=== PATIENT | male | born 1945 | race Caucasian/White ===

== ENCOUNTER 2019-09-29 08:50 | Emergency (ER) | payer MEDICARE, OTHER ==
[~2019-09-29] VITALS: Ht 182.8 cm; Wt 81.2 kg
[2019-09-29] MEDS ORDERED: methylPREDNISolone 125 MG (Solu-MEDROL) VIAL IM STA (09:14)
[2019-09-29] MEDS ORDERED: FAMOTIDINE 20 MG (PEPCID) TABLET PO ONE (09:15)
[2019-09-29] MEDS ORDERED: diphenhydrAMINE 50 MG/ML INJ (BENADRYL) IM ONE (09:15)
--- NOTE | 2019-09-29 09:41 | NUR ---
PATIENT CAME OUT OF ROOM WANTING TO LEAVE STATES HE DID NOT KNOW THEY WOULD BE HERE THIS LONG. BACK TO ROOM
--- NOTE | 2019-09-29 10:00 | ED General ---
General Chief Complaint: Allergic Reaction Stated Complaint: BEE STING - FACIAL SWELLING Nursing Triage Note: AMB TO ROOM REPORTS APX 530 TODAY WAS STUNG BY BEE LG AMOUNT OF SWELLING IN R EYE UNABLE TO OPEN EYE. Nursing Sepsis Screen: No Definite Risk Source of Information: Patient Exam Limitations: No Limitations History of Present Illness Date Seen by Provider: Sep 29, 2019 Time Seen by Provider: 09:08 Initial Comments Here with report of being stung by a bee at about 5:30 AM's morning to the right face below the right eye and near the nose. Has swelling that started there and has encompassed both eyes with right greater than left as well as the nose and upper brow bilateral. Denies breathing problems, stomach pain, nausea or weakness. Has had multiple bee stings in his life and has not had problems. Doesn't really follow with any physician. Hypertensive today and states that he may have that but is not really sure. Denies rash, hives or weakness. Drove himself to the ER. Timing/Duration: 4-6 Hours Severity: Moderate Associated Systoms: No Cough, No Fever/Chills, No Nausea/Vomiting, No Shortness of Air, No Weakness Allergies and Home Medications Allergies Coded Allergies: No Known Drug Allergies (Unverified , 09/29/19) Patient Home Medication List Home Medication List Reviewed: Yes Review of Systems Review of Systems Constitutional: see HPI; No chills, No fever EENTM: No mouth pain, No mouth swelling, No throat pain, No throat swelling Respiratory: No cough, No short of breath Cardiovascular: No chest pain, No palpitations Gastrointestinal: No abdominal pain, No nausea, No vomiting Genitourinary: no symptoms reported Musculoskeletal: No joint pain, No muscle pain Skin: no symptoms reported All Other Systems Reviewed Negative Unless Noted: Yes Past Xtxnnio-Dmupjg-Nwhqvp Hx Past Med/Social Hx: Reviewed Nursing Past Med/Soc Hx Patient Social History Alcohol Use: Denies Use Recreational Drug Use: No Smoking Status: Never a Smoker Recent Foreign Travel: No Contact w/Someone Who Travel: No Recent Infectious Disease Expo: No Past Medical History Surgeries: No Respiratory: No Cardiac: No Neurological: No Genitourinary: No Gastrointestinal: No Musculoskeletal: No Endocrine: No HEENT: No Cancer: No Psychosocial: No Integumentary: No Family Medical History Reviewed Nursing Family Hx Physical Exam Vital Signs Vital Signs - First Documented 09/29/19 08:54 Temp 36.9 Pulse 84 Resp 18 B/P (MAP) 191/11 (70) Capillary Refill : Less Than 3 Seconds Height, Weight, BMI Height: '" Weight: lbs. oz. kg; 24.00 BMI Method: General Appearance: No Apparent Distress, WD/WN HEENT: Pharynx Normal, Other (swelling to the case with swelling around the eye on the right greater than left and encompasses the brow as well. Right eye nearly swollen shut.) Neck: Non Tender, Supple Respiratory: Normal Breath Sounds, Expiration, Wheezing (a few trace wheezes especially at the base) Cardiovascular: Regular Rate, Rhythm, No Murmur Gastrointestinal: Non Tender, Soft Back: Normal Inspection, No CVA Tenderness, No Vertebral Tenderness Extremity: Normal Range of Motion, Non Tender Neurologic/Psychiatric: Alert, Oriented x3 Skin: Normal Color, Warm/Dry Progress/Results/Core Measures Suspected Sepsis Recent Fever Within 48 Hours: No Infection Criteria Present: None New/Unexplained Altered Menta: No Sepsis Screen: No Definite Risk SIRS Temperature: Pulse: 84 Respiratory Rate: 18 Blood Pressure 191 /11 Mean: 70 Results/Orders My Orders Orders - DELVIN SHRESTHA MD Diphenhydramine Injection (Benadryl Inje (09/29/19 09:15) Methylprednisolone Sod Succ (Solu-Medrol (09/29/19 09:14) Famotidine Tablet (Pepcid Tablet) (09/29/19 09:15) Medications Given in ED Current Medications Medications Dose Ordered Sig/Elsy Route Start Time Stop Time Status Last Admin Dose Admin Diphenhydramine HCl 50 mg ONCE ONCE IM 09/29/19 09:15 09/29/19 09:17 DC 09/29/19 09:25 50 MG Famotidine 20 mg ONCE ONCE PO 09/29/19 09:15 09/29/19 09:17 DC 09/29/19 09:24 20 MG Vital Signs/I&O 09/29/19 08:54 Temp 36.9 Pulse 84 Resp 18 B/P (MAP) 191/11 (70) Capillary Refill : Less Than 3 Seconds Blood Pressure Mean: 70 Progress Note : Progress Note Seen and evaluated. Solu-Medrol 125 mg IM, Benadryl 50 mg IM and Pepcid 20 mg by mouth ordered. Monitor patient. 1037: Overall doing better with much greater opening of the right eye. Patient like to go. Discharged home with return precautions. Patient verbalize understanding instructions and agreement with plan. Instructed to follow-up with primary care regarding his blood pressure. Patient states he would. I did encourage him to do so and twisted my concerns related to uncontrolled hypertension. Patient stated he understood. Departure Impression Primary Impression: Bee sting reaction Qualified Codes: T63.444A - Toxic effect of venom of bees, undetermined, initial encounter Disposition: HOME, SELF-CARE Condition: Stable Departure-Patient Inst. Decision time for Depature: 10:39 Referrals: NO,LOCAL PHYSICIAN (PCP/Family) Primary Care Physician Patient Instructions: Insect Bites and Stings (DC) Add. Discharge Instructions: All discharge instructions reviewed with patient and/or family. Voiced understanding. You may take Benadryl 25 mg every 6 hours as needed for itching or swelling. You may take ldru-dop-cfmjbvt Pepcid or the generic famotidine 20 mg daily for the next few days as needed for swelling as well. Take medications as directed. Take Your prescription and take it as prescribed. Return for worse pain, swelling, breathing problems, nausea, vomiting, abdominal pain or other concerns as need ed. Scripts Prednisone (Prednisone) 20 Mg Tab 40 MG PO DAILY, #6 TAB 0 Refills Prov: DELVIN SHRESTHA MD 09/29/19 DELVIN SHRESTHA MD Sep 29, 2019 10:00
--- NOTE | 2019-09-29 10:36 | NUR ---
TO ROOM SWELLING IMPROVED ABLE TO OPEN R EYE.
[2019-09-29] MEDS ORDERED: PRD20T PO (10:40)
[2019-09-29 10:42] VITALS: BP 186/109
== END 2019-09-29 10:47 | disposition home or self-care (01) ==
LOC: ER 08:52
DX: T63.444A Toxic effect of venom of bees, undetermined, initial encounter (principal)
CPT/HCPCS: 99284

== ENCOUNTER → 2019-10-04 | Outpatient (CLI) | payer SELFPAY ==
[~2019-10-04] MED LIST: PRD20T PO
--- NOTE | 2019-10-04 11:12 | Diagnostic Imaging Report ---
INDICATION: Cough and wheezing. TIME OF EXAM: 10:19 AM No prior studies available for comparison. Lungs are hyperinflated consistent with COPD. There is some scarring or atelectasis in left base. No infiltrates are seen. No significant effusion. No pneumothorax. IMPRESSION: COPD with left basilar atelectasis or scarring. Dictated by: Dictated on workstation # [id number]
== END ==
LOC: RAD 09:46
PROVIDERS: ATTEND Family Medicine
DX: J44.9 Chronic obstructive pulmonary disease, unspecified (principal)
CPT/HCPCS: 71046

== ENCOUNTER 2020-12-10 09:15 | Emergency (ER) | payer MEDICARE, MEDICAID ==
[~2020-12-10] VITALS: Ht 182 cm; Wt 81.6 kg
[2020-12-10] MEDS ORDERED: RT-ALBUTEROL/IPRATROPIUM 3 ML (DUONEB) VIAL INH ONE (10:45)
--- NOTE | 2020-12-10 11:09 | Diagnostic Imaging Report ---
INDICATION: Cough, COPD, Neg COVID COMPARISON: 10/04/2019 FINDINGS: Frontal and lateral views of the chest demonstrate normal heart size and pulmonary vascularity. The lungs are clear. There are no signs of infiltrate, pleural effusions or pneumothoraces. The visualized osseous structures show no acute abnormalities. IMPRESSION: 1. No acute process. No signs of infiltrates, effusions or pneumothoraces. Dictated by: Dictated on workstation # [id number]
[2020-12-10] MEDS ORDERED: RT-ALBUINH INH (11:36)
--- NOTE | 2020-12-10 11:36 | ED General ---
General Chief Complaint: Cough/Cold/Flu Symptoms Stated Complaint: SOB,COUGH Nursing Triage Note: pt presents to ed with complaints of cough starting yesterday. Allergies and Home Medications Allergies Coded Allergies: No Known Drug Allergies (Unverified , 09/29/19) Home Medications Prednisone 20 Mg Tab, 40 MG PO DAILY Prescribed by: DELVIN SHRESTHA on 09/29/19 1040 Past Nufxkoj-Owpwic-Kfnamv Hx Patient Social History Tobacco Use?: No Smoking Status: Former Smoker Substance use?: No Alcohol Use?: No Pt feels they are or have been: No Past Medical History Surgeries: No Respiratory: No Cardiac: No Neurological: No Genitourinary: No Gastrointestinal: No Musculoskeletal: No Endocrine: No HEENT: No Cancer: No Psychosocial: No Integumentary: No Physical Exam Vital Signs Vital Signs - First Documented 12/10/20 09:49 Temp 36.8 Pulse 90 Resp 24 B/P (MAP) 154/79 (104) Pulse Ox 90 Capillary Refill : Less Than 3 Seconds Height, Weight, BMI Height: '" Weight: lbs. oz. kg; 24.00 BMI Method: Progress/Results/Core Measures Suspected Sepsis SIRS Temperature: Pulse: 90 Respiratory Rate: 24 Blood Pressure 154 /79 Mean: 104 Results/Orders Lab Results Laboratory Tests Test 12/10/20 09:55 Range/Units Influenza Type A (RT-PCR) Not Detected Not Detecte Influenza Type B (RT-PCR) Not Detected Not Detecte SARS-CoV-2 RNA (RT-PCR) Not Detected Not Detecte My Orders Orders - TEJAL PILLAI MD Covid 19 Inhouse Test (12/10/20 09:53) Influenza A And B By Pcr (12/10/20 09:53) Albuterol/Ipra Inhalation Soln (Duoneb I (12/10/20 10:45) Svn Small Volume Nebulizer (12/10/20 10:38) Chest Pa/Lat (2 View) (12/10/20 10:38) Vital Signs/I&O 12/10/20 09:49 Temp 36.8 Pulse 90 Resp 24 B/P (MAP) 154/79 (104) Pulse Ox 90 Capillary Refill : Less Than 3 Seconds Blood Pressure Mean: 104 Departure Impression Primary Impression: COPD with exacerbation Disposition: 01 HOME, SELF-CARE Condition: Stable Departure-Patient Inst. Decision time for Depature: 11:33 Referrals: ANISHA LITTLE MD (PCP/Family) Primary Care Physician Patient Instructions: Chronic Obstructive Pulmonary Disease (COPD) (DC) Add. Discharge Instructions: Use your scheduled inhaled medications as previously directed. Add the albuterol inhaler up to 4 puffs in a 4-hour period of time as needed for shortness of breath, wheezing, or uncontrolled coughing. If this is not improving your symptoms over the next 24 hours, call your doctor in the morning for further instructions. Also schedule an appointment for follow-up with your doctor as soon as possible to review treatment of your COPD. Call the ER with any questions or concerns. Return to the ER if you have worsening of symptoms. All discharge instructions reviewed with patient and/or family. Voiced un derstanding. Scripts Albuterol Sulfate (VENTOLIN HFA) 1 Puff Puff 1-4 PUFF INH Q4H PRN for SHORTNESS OF BREATH, #1 EA 1 PUFF = 90 MCG Prov: TEJAL PILLAI MD 12/10/20 Copy Copies To 1: ANISHA LITTLE MD, JOSHUA T MD Dec 10, 2020 11:36
[2020-12-10 11:44] VITALS: BP 148/97
== END 2020-12-10 11:48 | disposition home or self-care (01) ==
LOC: EDUNIT# 09:15 → ER 09:18
DX: J44.1 Chronic obstructive pulmonary disease with (acute) exacerbation (principal); Z20.822 Contact with and (suspected) exposure to COVID-19; Z87.891 Personal history of nicotine dependence; Z79.52 Long term (current) use of systemic steroids
CPT/HCPCS: 71046; 87636

== ENCOUNTER → 2021-07-28 | Outpatient (CLI) | payer MEDICARE, MEDICAID ==
[~2021-07-28] MED LIST changes: +RT-ALBUINH INH
--- NOTE | 2021-07-28 16:10 | Diagnostic Imaging Report ---
INDICATION: COPD. TIME OF EXAM: 3:39 PM. COMPARISON: Correlation is made with prior chest 12/10/2020. FINDINGS: Lungs are hyperinflated consistent with COPD. The heart size is normal. Lungs are clear. No infiltrates are detected. There is no effusion or pneumothorax. IMPRESSION: COPD. No acute feature is detected. Dictated by: Dictated on workstation # [id number]
== END ==
LOC: RAD 15:25
PROVIDERS: ATTEND Nurse Practitioner Family
DX: J44.9 Chronic obstructive pulmonary disease, unspecified (principal)
CPT/HCPCS: 71046

== ENCOUNTER 2021-12-08 15:40 | Emergency (ER) | payer MEDICARE, MEDICAID ==
[~2021-12-08] VITALS: Ht 182.8 cm; Wt 81.6 kg
--- NOTE | 2021-12-08 15:53 | ED General ---
General Chief Complaint: Bite-Animal/Human/Insect Stated Complaint: BEE STING, SWELLING Source of Information: Patient Exam Limitations: No Limitations History of Present Illness Date Seen by Provider: Dec 08, 2021 Time Seen by Provider: 15:43 Initial Comments 76-year-old male with past medical history most notable for hypertension coming in after he was stung just under his chin by a bee over an hour prior to arrival. 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 Denies feeling short of breath, has no difficulty swallowing, no wheezing, nausea, vomiting, rash anywhere, or any other concerns. Tetanus is up-to-date. Allergies and Home Medications Allergies Coded Allergies: No Known Drug Allergies (Unverified , 09/29/19) Patient Home Medication List Home Medication List Reviewed: Yes Albuterol Sulfate (Ventolin Hfa) 1 Puff Puff, 1-4 PUFF INH Q4H PRN for SHORTNESS OF BREATH Prescribed by: TEJAL KRUSE on 12/10/20 1136 Prednisone (Prednisone) 20 Mg Tab, 40 MG PO DAILY Prescribed by: DELVIN SHRESTHA on 09/29/19 1040 Review of Systems Review of Systems Constitutional: No fever EENTM: no symptoms reported Respiratory: no symptoms reported Cardiovascular: no symptoms reported Gastrointestinal: no symptoms reported Genitourinary: no symptoms reported Musculoskeletal: no symptoms reported Skin: see HPI Psychiatric/Neurological: No Symptoms Reported Hematologic/Lymphatic: No Symptoms Reported Immunological/Allergic: no symptoms reported All Other Systems Reviewed Negative Unless Noted: Yes Past Zzvjsph-Aosilg-Ssnntz Hx Patient Social History Tobacco Use?: No Past Medical History Surgeries: No Respiratory: Yes COPD Cardiac: Yes Hypertension Neurological: No Genitourinary: No Gastrointestinal: No Musculoskeletal: No Endocrine: No HEENT: No Cancer: No Psychosocial: No Integumentary: No Physical Exam Vital Signs Vital Signs - First Documented 12/08/21 15:42 Temp 36.9 Pulse 61 Resp 20 B/P (MAP) 168/115 (132) Pulse Ox 96 O2 Delivery Room Air Capillary Refill : Height, Weight, BMI Height: '" Weight: lbs. oz. kg; 24.00 BMI Method: General Appearance: No Apparent Distress, WD/WN HEENT: PERRL/EOMI, Normal ENT Inspection, Pharynx Normal Neck: Full Range of Motion, Normal Inspection, Non Tender, Supple Respiratory: Chest Non Tender, Lungs Clear, Normal Breath Sounds, No Accessory Muscle Use, No Respiratory Distress Cardiovascular: Regular Rate, Rhythm, No Edema, Normal Peripheral Pulses Gastrointestinal: Normal Bowel Sounds, Non Tender, Soft; No Guarding Back: Normal Inspection Extremity: Normal Capillary Refill, Normal Inspection, Normal Range of Motion, Non Tender, No Calf Tenderness, No Pedal Edema Neurologic/Psychiatric: Alert, No Motor/Sensory Deficits, Normal Mood/Affect Skin: Normal Color, Warm/Dry, Other (May be some subtle redness under his chin with no swelling noted) Lymphatic: No Adenopathy Progress/Results/Core Measures Suspected Sepsis SIRS Temperature: Pulse: Respiratory Rate: Blood Pressure / Mean: Results/Orders My Orders Orders - YANN TIJERINA MD Diphenhydramine Injection (Benadryl Inje (12/08/21 16:00) Dexamethasone Injection (Decadron Injec (12/08/21 16:00) Famotidine Tablet (Pepcid Tablet) (12/08/21 16:00) Medications Given in ED Current Medications Medications Dose Ordered Sig/Elsy Route Start Time Stop Time Status Last Admin Dose Admin Dexamethasone Sodium Phosphate 8 mg ONCE ONCE IV 12/08/21 16:00 12/08/21 16:01 DC 12/08/21 15:57 8 MG Diphenhydramine HCl 25 mg ONCE ONCE IVP 12/08/21 16:00 12/08/21 16:01 DC 12/08/21 15:57 25 MG Famotidine 40 mg ONCE ONCE PO 12/08/21 16:00 12/08/21 16:01 DC 12/08/21 15:55 40 MG Vital Signs/I&O 12/08/21 15:42 Temp 36.9 Pulse 61 Resp 20 B/P (MAP) 168/115 (132) Pulse Ox 96 O2 Delivery Room Air Capillary Refill : Progress Note : Progress Note 76-year-old male with above history coming in after possible bee sting. He never did seem to be, but knows he has a swarm of bees where he was near and felt a sting under his chin. This was over an hour prior to arrival and he has no signs of anaphylaxis. He says he feels some subjective swelling, I do not feel or see any. Given his history of allergies with this, we will go ahead and start an IV and give him Benadryl, steroids, and Pepcid to hopefully forego any type of allergic response. We then monitored the patient for a while and continue to reassess him, and he had no signs of anaphylaxis. I believe he stable for discharge with outpatient follow-up. He was sent home with strict return precautions. Departure Impression Primary Impression: Bee sting Qualified Codes: T63.441A - Toxic effect of venom of bees, accidental (unintentional), initial encounter Disposition: HOME, SELF-CARE Condition: Stable Departure-Patient Inst. Decision time for Depature: 16:35 Referrals: NO,LOCAL PHYSICIAN (PCP) Primary Care Physician ANAHI MADRID (Family) Primary Care Physician Patient Instructions: Insect Bites and Stings (DC) Add. Discharge Instructions: You can take some soxz-cua-srsqxnv Zyrtec for the next couple of days if you have any itching. If you begin feeling very short of breath, feel like your throat is closing, wheezing a lot, or have any other concerns then please come back to the ER. We did give you a long-acting steroid which should help and last several days. YANN TIJERINA MD Dec 08, 2021 15:53
[2021-12-08] MEDS ORDERED: diphenhydrAMINE 50 MG/ML INJ (BENADRYL) IVP ONE (16:00)
[2021-12-08] MEDS ORDERED: FAMOTIDINE 20 MG (PEPCID) TABLET PO ONE (16:00)
[2021-12-08 16:48] VITALS: BP 168/115
== END 2021-12-08 16:48 | disposition home or self-care (01) ==
LOC: EDUNIT# 15:40 → ER 15:42
DX: T63.441A Toxic effect of venom of bees, accidental (unintentional), initial encounter (principal)
CPT/HCPCS: 96374; 96375; 99282

== ENCOUNTER 2022-09-15 14:55 | Emergency (ER) | payer MEDICAID, MEDICARE ==
[~2022-09-15] VITALS: Ht 177 cm; Wt 80.0 kg
[2022-09-15] MEDS ORDERED: fentaNYL INJ 100 MCG/2 ML AMP ONE (15:10)
[2022-09-15] MEDS ORDERED: fentaNYL INJ 100 MCG/2 ML AMP IVP ONE (15:15)
[2022-09-15] MEDS ORDERED: HOLD METFORMIN - RECEIVED CONTRAST 20 ML VIAL IV SCH (15:15)
[2022-09-15] MEDS ORDERED: IOHEXOL 350 MG/ML 100 ML (OMNIPAQUE 350) VIAL IV ONE (15:15)
[2022-09-15] MEDS ORDERED: NS 100 ML (IVPB) BAG IV ONE (15:15)
[2022-09-15 15:18] LABS: HEMATOCRIT 44 % (40-54); HEMOGLOBIN 15.2 g/dL (13.3-17.7); MEAN CORPUSCULAR HEMOGLOBIN 30 pg (25-34); MEAN CORPUSCULAR HGB CONC 35 g/dL (32-36); MEAN CORPUSCULAR VOLUME 87 fL (80-99); MEAN PLATELET VOLUME 11.3 fL (9.0-12.2); PLATELET COUNT 266 10^3/uL (130-400)
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
[2022-09-15] MEDS ORDERED: morphine INJ 10 MG/ML 1ML (SYR OR VIAL) IVP STA (15:27)
[2022-09-15] MEDS ORDERED: LORazepam INJ 2 MG/ML (ATIVAN) VIAL IVP ONE (15:30)
[2022-09-15 15:32] LABS: ALBUMIN 4.2 GM/DL (3.2-4.5); CHLORIDE 103 MMOL/L (98-107); SODIUM 137 MMOL/L (135-145)
[2022-09-15 15:33] LABS: CALCIUM 9.5 MG/DL (8.5-10.1)
[2022-09-15 15:35] LABS: GLUCOSE 173 MG/DL (70-105); TOTAL PROTEIN 7.5 GM/DL (6.4-8.2)
[2022-09-15 15:36] LABS: BILIRUBIN,TOTAL 0.6 MG/DL (0.1-1.0); CARBON DIOXIDE 22 MMOL/L (21-32)
[2022-09-15 15:38] LABS: ALKALINE PHOSPHATASE 39 U/L (40-136); CREATININE SERUM 1.36 MG/DL (0.60-1.30); GFR ESTIMATED 54
[2022-09-15 15:39] LABS: BUN/CREATININE RATIO 21
[2022-09-15 15:40] LABS: BILIRUBIN,DIRECT 0.2 MG/DL (0.0-0.3); BILIRUBIN,INDIRECT 0.4 MG/DL
[2022-09-15 15:41] LABS: ALANINE AMINOTRANSFERASE 38 U/L (0-55)
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
[2022-09-15] MEDS ORDERED: ceFAZolin INJECTION 2,000 MG in NS (IVPB) 50 ML IV ONE (16:00)
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
[2022-09-15 16:10] LABS: BILIRUBIN,URINE NEGATIVE (NEGATIVE); CLARITY,URINE CLEAR; COLOR,URINE YELLOW; GLUCOSE, URINE (UA) NEGATIVE (NEGATIVE); KETONES,URINE TRACE (NEGATIVE); LEUKOCYTE ESTERASE ,URINE NEGATIVE (NEGATIVE); NITRITE,URINE NEGATIVE (NEGATIVE); PH,URINE 5.5 (5-9); PROTEIN,URINE 1+ (NEGATIVE)
--- NOTE | 2022-09-15 16:16 | Diagnostic Imaging Report ---
INDICATION: Right-sided chest pain Portable chest 4:13 PM There is right thoracostomy tube. There is some infiltrate present in the right upper lobe. Left lung is clear. There is no mediastinal widening. There is no effusion or pneumothorax. IMPRESSION: Right upper lobe infiltrate. Interval placement of a right thoracostomy tube. Dictated by: Dictated on workstation # [id number]
[2022-09-15 16:23] VITALS: BP 165/99
[2022-09-15 16:23] LABS: BACTERIA,URINE TRACE /HPF; SQUAMOUS EPITHELIAL CELL,UR RARE /HPF
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
--- NOTE | 2022-09-15 23:45 | Progress Note-Post Operative ---
Post-Operative Progess Note Surgeon (s)/Preschool Paraprofessional (s) Surgeon HEMALATHA JEFFERSON DO Preschool Paraprofessional: none Pre-Operative Diagnosis right pneumothorax Post-Operative Diagnosis same Procedure & Operative Findings Date of Procedure 09/15/22 Procedure Performed/Findings Right sided Chest tube placement Anesthesia Type local lidocaine Estimated Blood Loss Estimated blood loss (mL): none Specimens/Packing Specimens Removed none Packin HEMALATHA JEFFERSON DO Sep 15, 2022 23:45
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
== END 2022-09-15 16:23 | disposition short-term general hospital (02) ==
LOC: EDUNIT# 14:55 → ER 14:56
DX: S02.19XA Other fracture of base of skull, initial encounter for closed fracture (principal); S06.6X0A Traumatic subarachnoid hemorrhage without loss of consciousness, initial encounter; S06.5X0A Traumatic subdural hemorrhage without loss of consciousness, initial encounter; S22.41XA Multiple fractures of ribs, right side, initial encounter for closed fracture; S42.001A Fracture of unspecified part of right clavicle, initial encounter for closed fracture; S27.321A Contusion of lung, unilateral, initial encounter; S27.0XXA Traumatic pneumothorax, initial encounter; I48.91 Unspecified atrial fibrillation; E87.6 Hypokalemia; R41.82 Altered mental status, unspecified; S40.211A Abrasion of right shoulder, initial encounter; S20.91XA Abrasion of unspecified parts of thorax, initial encounter; S80.211A Abrasion, right knee, initial encounter; S70.211A Abrasion, right hip, initial encounter; S50.311A Abrasion of right elbow, initial encounter; S60.811A Abrasion of right wrist, initial encounter; V23.49XA Other motorcycle driver injured in collision with car, pick-up truck or van in traffic accident, initial encounter; Y92.410 Unspecified street and highway as the place of occurrence of the external cause
CPT/HCPCS: 36415; 51702; 70450; 70498; 71045; 71260; 72170; 74177; 80048; 80076; 80320; 81000; 84484; 85027; 86850; 86900; 86901; 93041; 99291

== ENCOUNTER 2022-10-09 18:00 | Emergency (ER) | payer MEDICAID, MEDICARE ==
[~2022-10-09] VITALS: Ht 182 cm; Wt 80.0 kg
[2022-10-09] MEDS ORDERED: morphine INJ 10 MG/ML 1ML (SYR OR VIAL) IVP STA (18:17)
[2022-10-09 18:21] LABS: BASOPHILS # (AUTO) 0.1 10^3/uL (0.0-0.1); BASOPHILS % (AUTO) 0 % (0-10); EOSINOPHILS # (AUTO) 0.2 10^3/uL (0.0-0.3); EOSINOPHILS % (AUTO) 1 % (0-10); HEMATOCRIT 28 % (40-54); HEMOGLOBIN 9.2 g/dL (13.3-17.7); LYMPHOCYTES # (AUTO) 1.7 10^3/uL (1.0-4.0); LYMPHOCYTES % (AUTO) 14 % (12-44); MEAN CORPUSCULAR HEMOGLOBIN 31 pg (25-34); MEAN CORPUSCULAR HGB CONC 33 g/dL (32-36); MEAN CORPUSCULAR VOLUME 93 fL (80-99); MEAN PLATELET VOLUME 9.2 fL (9.0-12.2); MONOCYTES % (AUTO) 8 % (0-12); NEUTROPHILS # (AUTO) 9.6 10^3/uL (1.8-7.8); NEUTROPHILS % (AUTO) 76 % (42-75); PLATELET COUNT 380 10^3/uL (130-400); WHITE BLOOD COUNT 12.7 10^3/uL (4.3-11.0)
[2022-10-09 18:33] LABS: ALBUMIN 3.4 GM/DL (3.2-4.5); CHLORIDE 103 MMOL/L (98-107); POTASSIUM 3.9 MMOL/L (3.6-5.0); SODIUM 136 MMOL/L (135-145)
[2022-10-09 18:34] LABS: CALCIUM 8.7 MG/DL (8.5-10.1)
[2022-10-09 18:35] LABS: GLUCOSE 131 MG/DL (70-105); PROTHROMBIN TIME PATIENT 13.3 SEC (12.2-14.7)
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
[2022-10-09 18:36] LABS: TOTAL PROTEIN 6.3 GM/DL (6.4-8.2)
[2022-10-09 18:37] LABS: BILIRUBIN,TOTAL 0.6 MG/DL (0.1-1.0); CARBON DIOXIDE 25 MMOL/L (21-32)
[2022-10-09 18:39] LABS: ALKALINE PHOSPHATASE 88 U/L (40-136); CREATININE SERUM 0.97 MG/DL (0.60-1.30); GFR ESTIMATED 81
[2022-10-09 18:40] LABS: BUN/CREATININE RATIO 15
[2022-10-09 18:42] LABS: ALANINE AMINOTRANSFERASE 46 U/L (0-55)
--- NOTE | 2022-10-09 18:43 | Diagnostic Imaging Report ---
INDICATION: Chest pain. COMPARISON: Prior examination from 09/15/2022. FINDINGS: The heart size, mediastinal configuration and pulmonary vascularity are within normal limits. There is no pleural effusion, pneumothorax or pneumonia. The osseous structures are unremarkable. IMPRESSION: No acute cardiopulmonary abnormality. Dictated by: Dictated on workstation # [id number]
[2022-10-09] MEDS ORDERED: IOHEXOL 350 MG/ML 100 ML (OMNIPAQUE 350) VIAL IV ONE (18:45)
[2022-10-09] MEDS ORDERED: HOLD METFORMIN - RECEIVED CONTRAST 20 ML VIAL IV SCH (18:45)
[2022-10-09] MEDS ORDERED: NS 100 ML (IVPB) BAG IV ONE (18:45)
--- NOTE | 2022-10-09 19:16 | Diagnostic Imaging Report ---
PROCEDURE: CT angiography of the chest with contrast and CT abdomen and pelvis with contrast. TECHNIQUE: Multiple contiguous axial images were obtained through the chest, abdomen and pelvis after administration of intravenous contrast. 3D MIP reconstructed CT angiography acquisitions of the aorta were then performed. Auto Exposure Controls were utilized during the CT exam to meet ALARA standards for radiation dose reduction. INDICATION: Chest pain. FINDINGS: There is 1.5 cm spiculated mass in the medial aspect of the superior segment of the right lower lobe. There is some left basilar atelectasis and/or pneumonitis. There is no pleural or pericardial fluid. There is no pneumothorax. The thoracic aorta is normal in caliber without evidence of dissection. There is no filling defect seen within the pulmonary arteries to suggest pulmonary embolism. The liver is normal in size and without focal lesion. Gallbladder is unremarkable. There is no biliary ductal dilatation. Spleen is normal. There are findings compatible with chronic calcific pancreatitis. The adrenal glands are unremarkable. There is a cyst in the right kidney. There is a 5 cm infrarenal abdominal aortic aneurysm with some caridad-luminal thrombosis. The bowel gas pattern is nonspecific. There is some diverticular disease. There is no diverticulitis. Bladder is normal. There is no pelvic mass or adenopathy. There is enlargement of the prostate. There are degenerative changes in the spine. IMPRESSION: 1. 1.5 cm spiculated mass in the medial aspect of the right upper lobe concerning for neoplasm. Additionally, there is some left basilar atelectasis and/or pneumonitis. 2. Findings compatible with chronic calcific pancreatitis. 3. Right renal cyst. 4. 5 cm infrarenal abdominal aortic aneurysm. 5. Diverticular disease without evidence for diverticulitis. Dictated by: Dictated on workstation # [id number]
[2022-10-09] MEDS ORDERED: TRM50T PO (20:27)
[2022-10-09 20:40] VITALS: BP 164/81
== END 2022-10-09 20:40 | disposition home or self-care (01) ==
LOC: EDUNIT# 18:00 → ER 18:02
DX: I71.40 Abdominal aortic aneurysm, without rupture, unspecified (principal); K92.2 Gastrointestinal hemorrhage, unspecified; R91.8 Other nonspecific abnormal finding of lung field; D64.9 Anemia, unspecified; N28.1 Cyst of kidney, acquired; K86.1 Other chronic pancreatitis; D72.829 Elevated white blood cell count, unspecified; Z86.79 Personal history of other diseases of the circulatory system
CPT/HCPCS: 36415; 71045; 71275; 74174; 80053; 82274; 83690; 83735; 84484; 85025; 85610; 85730; 93005; 93041

== ENCOUNTER 2022-11-25 18:24 | Emergency (ER) | payer MEDICARE, MEDICAID ==
[~2022-11-25] VITALS: Ht 182 cm; Wt 70.0 kg
[~2022-11-25 18:24] MED LIST changes: +TRM50T PO
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
[2022-11-25 19:15] LABS: ALBUMIN 3.8 GM/DL (3.2-4.5); BILIRUBIN,TOTAL 0.9 MG/DL (0.1-1.0); CREATININE SERUM 1.34 MG/DL (0.60-1.30); POTASSIUM 3.7 MMOL/L (3.6-5.0)
[2022-11-25] MEDS ORDERED: ONDANSETRON 4 MG/2 ML (SDV) Z0FRAN IVP ONE (19:15)
[2022-11-25] MEDS ORDERED: fentaNYL INJECTION 100 MCG/2 ML VIAL IVP ONE (19:15)
[2022-11-25] MEDS ORDERED: PANTOPRAZOLE 40 MG (PROTONIX) VIAL IV ONE (19:15)
[2022-11-25 19:16] LABS: BASOPHILS % (AUTO) 0 % (0-10); EOSINOPHILS # (AUTO) 0.2 10^3/uL (0.0-0.3); EOSINOPHILS % (AUTO) 2 % (0-10); HEMATOCRIT 39 % (40-54); HEMOGLOBIN 13.4 g/dL (13.3-17.7); LYMPHOCYTES # (AUTO) 1.7 10^3/uL (1.0-4.0); LYMPHOCYTES % (AUTO) 16 % (12-44); MEAN CORPUSCULAR HEMOGLOBIN 30 pg (25-34); MEAN CORPUSCULAR HGB CONC 34 g/dL (32-36); MEAN CORPUSCULAR VOLUME 89 fL (80-99); MEAN PLATELET VOLUME 10.4 fL (9.0-12.2); MONOCYTES # (AUTO) 0.9 10^3/uL (0.0-1.0); MONOCYTES % (AUTO) 9 % (0-12); NEUTROPHILS # (AUTO) 7.6 10^3/uL (1.8-7.8); NEUTROPHILS % (AUTO) 72 % (42-75); PLATELET COUNT 229 10^3/uL (130-400); WHITE BLOOD COUNT 10.5 10^3/uL (4.3-11.0)
[2022-11-25 19:19] LABS: CLARITY,URINE CLEAR; COLOR,URINE YELLOW; GLUCOSE, URINE (UA) NEGATIVE (NEGATIVE); PROTEIN,URINE NEGATIVE (NEGATIVE)
[2022-11-25 19:20] LABS: BILIRUBIN,URINE NEGATIVE (NEGATIVE); KETONES,URINE NEGATIVE (NEGATIVE); NITRITE,URINE NEGATIVE (NEGATIVE)
[2022-11-25] MEDS ORDERED: IOHEXOL 350 MG/ML 100 ML (OMNIPAQUE 350) VIAL IV ONE (19:30)
[2022-11-25] MEDS ORDERED: NS IV 1000 ML 1,000 ML IV SCH (19:30)
[2022-11-25] MEDS ORDERED: NS 100 ML (IVPB) BAG IV ONE (19:30)
[2022-11-25] MEDS ORDERED: HOLD METFORMIN - RECEIVED CONTRAST 20 ML VIAL IV SCH (19:30)
[2022-11-25 19:39] LABS: PROTHROMBIN TIME PATIENT 13.2 SEC (12.2-14.7)
[2022-11-25] MEDS ORDERED: GUAI120013 (19:39)
[2022-11-25] MEDS ORDERED: HYDR25TA4 (19:39)
[2022-11-25] MEDS ORDERED: CHLO50TA2 (19:39)
[2022-11-25] MEDS ORDERED: FLUT1BLS15 (19:39)
[2022-11-25] MEDS ORDERED: DIGO250T3 (19:39)
[2022-11-25] MEDS ORDERED: AMIO200T65 (19:39)
[2022-11-25] MEDS ORDERED: PANT40TA52 (19:39)
[2022-11-25] MEDS ORDERED: METO-333 (19:39)
[2022-11-25 19:40] LABS: LEUKOCYTE ESTERASE ,URINE NEGATIVE (NEGATIVE)
[2022-11-25 19:42] LABS: BACTERIA,URINE NEGATIVE /HPF; RBC,URINE 0-2 /HPF; SQUAMOUS EPITHELIAL CELL,UR RARE /HPF
--- NOTE | 2022-11-25 19:44 | Diagnostic Imaging Report ---
EXAM: Chest 1 view, AP/PA only. INDICATION: Dyspnea. Epigastric pain. COMPARISON: 10/09/2022. FINDINGS: Normal heart size and central pulmonary vascularity. Lungs are clear. No pleural effusion or pneumothorax. No acute osseous finding. Subacute to chronic right clavicle fracture. IMPRESSION: 1. No acute cardiopulmonary finding. 2. Subacute to chronic right clavicle fracture demonstrates interval healing compared to the prior. Dictated by: Dictated on workstation # [id number]
[2022-11-25 20:01] LABS: AMPHETAMINE SCREEN, URINE NEGATIVE (NEGATIVE); BARBITURATE SCREEN URINE NEGATIVE (NEGATIVE); BENZODIAZEPINES SCREEN URINE NEGATIVE (NEGATIVE); CANNABINOID SCREEN, URINE NEGATIVE (NEGATIVE); COCAINE SCREEN URINE NEGATIVE (NEGATIVE); METHADONE STAT NEGATIVE (NEGATIVE); OPIATE SCREEN URINE NEGATIVE (NEGATIVE); OXYCODONE STAT NEGATIVE (NEGATIVE); PROPOXYPHENE STAT NEGATIVE (NEGATIVE); TRICYCLIC ANTIDEPRESSANTS SCRE NEGATIVE (NEGATIVE)
--- NOTE | 2022-11-25 20:13 | Diagnostic Imaging Report ---
EXAM: CT angio chest/abd w (r/o AD). 3D reconstructions including MIPs of the angiographic images were performed and reviewed. INDICATION: Abdominal aortic aneurysm. Epigastric pain. COMPARISON: CTA chest, abdomen and pelvis with IV contrast 10/09/2022. FINDINGS: Infrarenal abdominal aortic aneurysm measuring up to 5.2 x 5.1 cm is stable compared to the prior exam when measured in a similar fashion. This extends into the right common iliac artery where it measures up to 3.9 x 3.9 cm, also stable. The great arch vessels, celiac axis, SMA and PHUC demonstrate no high-grade narrowing. Borderline heart size. No pericardial effusion. No mediastinal, hilar or axillary lymphadenopathy. Moderate emphysema. The previously seen spiculated mass in the medial most superior aspect of the right lower lobe has largely resolved with some residual linear consolidation. No new pulmonary nodule or mass. Bibasilar atelectasis. No pleural effusion or pneumothorax. Chronic right rib fractures. The liver, gallbladder, spleen, adrenals, pancreas and kidneys demonstrate no acute finding. No free intraperitoneal air/fluid, lymphadenopathy or evidence of bowel obstruction in the visualized abdomen. No acute osseous finding. IMPRESSION: 1. Stable infrarenal abdominal aortic aneurysm measuring up to 5.2 cm in diameter. This extends into the right common iliac artery. 2. No acute CT finding in the chest or visualized abdomen. 3. The previously seen spiculated nodule in the medial superior aspect of the right lower lobe has largely resolved and is likely infectious/inflammatory. There remains some residual linear consolidation in this region. Recommend follow-up chest CT in three months. Dictated by: Dictated on workstation # [id number]
[2022-11-25] MEDS ORDERED: hydrALAZINE INJECTION 20 MG/ML VIAL IV ONE (20:30)
[2022-11-25] MEDS ORDERED: RX-ONDANSETRON 4 MG ODT (ZOFRAN) PPK #4 PO STA (20:34)
[2022-11-25] MEDS ORDERED: ONDA8TAB13 PO (20:37)
[2022-11-25] MEDS ORDERED: TRAM50TA3 PO (20:37)
[2022-11-25 20:48] VITALS: BP 150/68
== END 2022-11-25 20:49 | disposition home or self-care (01) ==
LOC: EDUNIT# 18:24 → ER 18:27
DX: I71.40 Abdominal aortic aneurysm, without rupture, unspecified (principal); I10 Essential (primary) hypertension; Z87.891 Personal history of nicotine dependence
CPT/HCPCS: 36415; 71045; 71275; 74175; 80053; 80162; 80306; 80320; 81000; 82150; 83690; 83735; 83880; 84484; 85025; 85610; 85730; 93005; 93041

== ENCOUNTER 2022-12-31 19:22 | Emergency (ER) | payer MEDICARE, MEDICAID ==
[~2022-12-31] VITALS: Ht 183 cm; Wt 70.3 kg
[~2022-12-31 19:22] MED LIST changes: +AMIO200T65; +CHLO50TA2; +DIGO250T3; +FLUT1BLS15; +GUAI120013; +HYDR25TA4; +METO-333; +ONDA8TAB13 PO; +PANT40TA52; +TRAM50TA3 PO
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
[2022-12-31] MEDS ORDERED: NS IV 1000 ML 1,000 ML IV STA (19:53)
[2022-12-31] MEDS ORDERED: CEFEPIME INJECTION 1,000 MG in NS (IVPB) 50 ML 50 ML IV ONE (20:00)
[2022-12-31] MEDS ORDERED: ACETAMINOPHEN 500 MG TABLET PO PRN (20:00)
[2022-12-31 20:03] LABS: BASOPHILS # (AUTO) 0.1 10^3/uL (0.0-0.1); BASOPHILS % (AUTO) 0 % (0-10); EOSINOPHILS % (AUTO) 0 % (0-10); HEMATOCRIT 43 % (40-54); HEMOGLOBIN 14.4 g/dL (13.3-17.7); LYMPHOCYTES # (AUTO) 0.6 10^3/uL (1.0-4.0); LYMPHOCYTES % (AUTO) 3 % (12-44); MEAN CORPUSCULAR HEMOGLOBIN 29 pg (25-34); MEAN CORPUSCULAR HGB CONC 34 g/dL (32-36); MEAN CORPUSCULAR VOLUME 88 fL (80-99); MEAN PLATELET VOLUME 10.1 fL (9.0-12.2); MONOCYTES # (AUTO) 1.2 10^3/uL (0.0-1.0); MONOCYTES % (AUTO) 5 % (0-12); NEUTROPHILS # (AUTO) 22.1 10^3/uL (1.8-7.8); NEUTROPHILS % (AUTO) 92 % (42-75); PLATELET COUNT 312 10^3/uL (130-400); WHITE BLOOD COUNT 24.1 10^3/uL (4.3-11.0)
[2022-12-31 20:13] LABS: PROTHROMBIN TIME PATIENT 13.1 SEC (12.2-14.7)
[2022-12-31 20:19] LABS: LYMPHOCYTES % (MANUAL) 3 %; MONOCYTES % (MANUAL) 3 %; NEUTROPHILS % (MANUAL) 94 %; PLATELET CLUMPS OCCASIONAL
[2022-12-31 20:24] LABS: ALBUMIN 4.3 GM/DL (3.2-4.5); BILIRUBIN,TOTAL 1.3 MG/DL (0.1-1.0); CALCIUM 9.6 MG/DL (8.5-10.1); CREATININE SERUM 1.42 MG/DL (0.60-1.30); POTASSIUM 3.8 MMOL/L (3.6-5.0); TOTAL PROTEIN 7.8 GM/DL (6.4-8.2)
--- NOTE | 2022-12-31 20:48 | Diagnostic Imaging Report ---
EXAMINATION: Chest 1 view. HISTORY: Cough. COMPARISON: 11/25/2022. FINDINGS: The lung volumes are normal. No focal consolidation is seen. No large pleural effusion or pneumothorax is seen. The cardiomediastinal silhouette is normal in size and contour. No acute osseous abnormality is seen. Stable subacute fracture in the mid right clavicle. IMPRESSION: No acute pleuroparenchymal process. Dictated by: Dictated on workstation # [id number]
[2022-12-31] MEDS ORDERED: IOHEXOL 350 MG/ML 100 ML (OMNIPAQUE 350) VIAL IV ONE (21:00)
[2022-12-31] MEDS ORDERED: HOLD METFORMIN - RECEIVED CONTRAST 20 ML VIAL IV SCH (21:00)
[2022-12-31] MEDS ORDERED: NS 100 ML (IVPB) BAG IV ONE (21:00)
[2022-12-31] MEDS ORDERED: RT-ALBUTEROL SULF 2.5 MG/3 ML PRE-MIX VIAL INH ONE (21:00)
--- NOTE | 2022-12-31 21:08 | Diagnostic Imaging Report ---
TECHNIQUE: CTA of the chest and abdomen was performed. 3D reformats were constructed and reviewed. Dose reduction techniques were utilized. REASON FOR EXAM: Chest and abdominal pain. History of aortic aneurysm repair. COMPARISON: 11/25/2022. FINDINGS: CTA CHEST: No evidence of aneurysm or dissection in the thoracic aorta. The heart size is normal. No pericardial effusion. No lymphadenopathy in the chest. Small amount of atelectasis is seen in the lung bases. No focal consolidation or mass. No pleural effusion or pneumothorax. No acute fracture in the thoracic spine. Old fractures are seen in the right ribs. CTA ABDOMEN: Stable infrarenal abdominal aortic aneurysm status post aortobiiliac stent grafting. The aneurysm sac measures 5.2 x 4.9 cm. No evidence of luminal stenosis. 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 No periaortic inflammatory change. The celiac trunk and SMA are patent. The liver, spleen, adrenal glands, and kidneys demonstrate no acute abnormality. Chronic pancreatitis changes are visualized in the pancreas with pancreatic calcifications and dilated pancreatic duct. No acute peripancreatic inflammatory change is seen. No bowel obstruction. No free fluid or free air. No acute osseous abnormality in the lumbar spine. IMPRESSION: 1. Stable infrarenal abdominal aortic aneurysm status post aortobiiliac stent grafting. 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 2. No evidence of acute aneurysm or dissection in the thoracic aorta. 3. No acute abnormality in the chest or abdomen. 4. Findings consistent with sequelae of chronic pancreatitis. No acute peripancreatic inflammation. Dictated by: Dictated on workstation # [id number]
[2022-12-31 21:18] LABS: BACTERIA,URINE FEW /HPF; BILIRUBIN,URINE NEGATIVE (NEGATIVE); CLARITY,URINE CLEAR; COLOR,URINE YELLOW; GLUCOSE, URINE (UA) NEGATIVE (NEGATIVE); KETONES,URINE NEGATIVE (NEGATIVE); LEUKOCYTE ESTERASE ,URINE 2+ (NEGATIVE); NITRITE,URINE NEGATIVE (NEGATIVE); PROTEIN,URINE NEGATIVE (NEGATIVE)
[2022-12-31] MEDS ORDERED: guaiFENesin 600 MG TABLET PO ONE (23:15)
[2023-01-01 00:50] VITALS: BP 161/71
== END 2023-01-01 00:50 | disposition short-term general hospital (02) ==
LOC: EDUNIT# 19:22 → ER 19:25
DX: R50.82 Postprocedural fever (principal); N39.0 Urinary tract infection, site not specified; I10 Essential (primary) hypertension; Z95.828 Presence of other vascular implants and grafts; Z96.0 Presence of urogenital implants; Z20.822 Contact with and (suspected) exposure to COVID-19
CPT/HCPCS: 36415; 51702; 71045; 71275; 74175; 80053; 81000; 83605; 83690; 85007; 85027; 85610; 85730; 87040; 87077; 87088; 87186; 87636

== ENCOUNTER 2023-03-04 14:20 | Emergency (ER) | payer MEDICARE, MEDICAID ==
[~2023-03-04] VITALS: Ht 182 cm; Wt 70.3 kg
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
[2023-03-04 15:16] LABS: CLARITY,URINE CLEAR; COLOR,URINE YELLOW
[2023-03-04 15:17] LABS: BACTERIA,URINE MODERATE /HPF; BILIRUBIN,URINE NEGATIVE (NEGATIVE); GLUCOSE, URINE (UA) NEGATIVE (NEGATIVE); KETONES,URINE NEGATIVE (NEGATIVE); LEUKOCYTE ESTERASE ,URINE 2+ (NEGATIVE); NITRITE,URINE POSITIVE (NEGATIVE); PROTEIN,URINE 2+ (NEGATIVE); RBC,URINE 25-50 /HPF; TRIPLE PHOSPHATE CRYSTAL,UR LARGE /LPF; WBC,URINE 25-50 /HPF
[2023-03-04] MEDS ORDERED: CEFU500T63 PO (15:26)
[2023-03-04 15:32] VITALS: BP 162/80
== END 2023-03-04 15:32 | disposition home or self-care (01) ==
LOC: EDUNIT# 14:20 → ER 14:21
DX: N39.0 Urinary tract infection, site not specified (principal); Z87.891 Personal history of nicotine dependence
CPT/HCPCS: 81000; 87077; 87088; 87186; 99283